=== PATIENT | female | born 1980 | race Caucasian/White ===

== ENCOUNTER 2019-01-15 01:52 | Inpatient (IN) | payer BC ==
--- OUTSIDE RECORDS SUMMARY | 2019-01-15 01:54 | XMS REPORT ---
:1980 Author Organization eClinicalWorks Care Team Providers Name Role Phone Georgie Hargrove Provider Role Unavailable Allergies, Adverse Reactions, Alerts Substance Reaction Event Type N.K.D.A. Info Not Available Non Drug Allergy Problems Problem Type Condition Code Onset Dates Condition Status Problem Multigravida of advanced maternal O09.522 Active age in second trimester Problem Well woman exam with routine Z01.419 Active gynecological exam Problem Pharyngitis, unspecified etiology J02.9 Active Assessment Pharyngitis, unspecified etiology J02.9 Active Problem Obesity (BMI 30-39.9) E66.9 Active Medications Medication Code Code Instructions Start End Status Dosage System Date Date Docusate [facility] [address]-25 Active not Sodium defined [facility] 23485035170 27-1 MG Orally Active 1 tablet Once a day Results No Known Results Summary Purpose eClinicalWorks Submission
--- OUTSIDE RECORDS SUMMARY | 2019-01-15 01:54 | XMS REPORT ---
:1980 Author Organization eClinicalWorks Care Team Providers Name Role Phone Ramos Go Provider Role Unavailable Allergies No Known Allergies Problems Problem Type Condition Code Onset Dates Condition Status Problem Multigravida of advanced maternal O09.522 Active age in second trimester Problem Well woman exam with routine Z01.419 Active gynecological exam Problem Pharyngitis, unspecified etiology J02.9 Active Assessment Multigravida of advanced maternal O09.522 Active age in second trimester Problem Obesity (BMI 30-39.9) E66.9 Active Medications Medication Code Code Instructions Start End Status Dosage System Date Date [facility] 46803565514 27-1 MG Orally Active 1 tablet Once a day Docusate [facility] [address]-36 Active not Sodium defined Results No Known Results Summary Purpose eClinicalWorks Submission
--- OUTSIDE RECORDS SUMMARY | 2019-01-15 01:54 | XMS REPORT ---
:1980 Author Organization eClinicalWorks Care Team Providers Name Role Phone Alfred Goswinder Provider Role Unavailable Allergies, Adverse Reactions, Alerts Substance Reaction Event Type N.K.D.A. Info Not Available Non Drug Allergy Problems Problem Type Condition Code Onset Dates Condition Status Assessment Encounter to determine O36.80X0 Active viability of , single or unspecified fetus Assessment Supervision of high risk O09.91 Active in first trimester Problem Multigravida of advanced maternal O09.522 Active age in second trimester Problem Well woman exam with routine Z01.419 Active gynecological exam Problem Pharyngitis, unspecified etiology J02.9 Active Assessment Amenorrhea N91.2 Active Assessment Encounter for supervision of Z34.91 Active low-risk in first trimester Problem Obesity (BMI 30-39.9) E66.9 Active Medications Medication Code System Code Instructions Start End Date Status Dosage Date Docosavit NDC 0 Active not defined NDC 32528484702 27-1 MG Orally Active 1 tablet Once a day Results Name Result Date Reference Range Unit Abnormality Flag T4 Free ----T4 Free 0.89 [id number] 0.76-1.46 TSH Thyroid Stimulating Hormone ----Thyroid 1.670 [id number] 0.360-3.740 [iU]/L Stimulating Hormone SURESWAB(R), VAGINOSIS/VAGINITI S PLUS ----C. ALBICANS, NOT DETECTED [id number] DNA ----SURESWAB(R) NOT DETECTED [id number] TRICHOMONAS VAGINALIS RNA, QL, TMA ----GARDNERELLA <4.7 [id number] Log VAGINALIS (cells/mL) ----MEGASPHAERA NOT DETECTED [id number] Log SPECIES (cells/mL) ----ATOPOBIUM NOT DETECTED [id number] Log VAGINAE (cells/mL) ----C. TROPICALIS, NOT DETECTED [id number] DNA ----CHLAMYDIA NOT DETECTED [id number] TRACHOMATIS RNA, TMA, UROGENITAL ----C. GLABRATA, NOT DETECTED [id number] DNA ----NEISSERIA NOT DETECTED [id number] GONORRHOEAE RNA, TMA, UROGENITAL ----BV CATEGORY: NOT SUPPORTIVE [id number] ----C. NOT DETECTED [id number] PARAPSILOSIS, DNA ----LACTOBACILLUS 6.7 [id number] Log SPECIES (cells/mL) Hemoglobin A1C ----Hemoglobin A1c 5.4 [id number] 4.2-6.3 % CULTURE, URINE, ROUTINE ----CULTURE, SEE NOTE [id number] URINE, ROUTINE ----CULTURE, SEE NOTE [id number] URINE, ROUTINE ----CULTURE, SEE NOTE [id number] URINE, ROUTINE URINALYSIS AUTO W/O SCOPE (54057) ----KETONES neg [id number] ----BILIRUBIN neg [id number] ----BLO TRACE [id number] ----SPECIFIC 1.030 [id number] GRAVITY ----PROTEIN neg [id number] ----pH 5.5 [id number] ----NIT neg [id number] ----URO 0.2 [id number] ----SUZY neg [id number] ----GLUCOSE neg [id number] Summary Purpose eClinicalWorks Submission
--- OUTSIDE RECORDS SUMMARY | 2019-01-15 01:54 | XMS REPORT ---
[...] Instructions Start End Date Status Dosage Date NDC 66730557447 27-1 MG Orally Active 1 tablet Once a day Docosavit NDC 0 Active not defined Results No Known Results Summary Purpose eClinicalWorks Submission
--- OUTSIDE RECORDS SUMMARY | 2019-01-15 01:55 | XMS REPORT ---
:1980 Author Organization eClinicalWorks Care Team Providers Name Role Phone Ramos Go Provider Role Unavailable Allergies No Known Allergies Problems Problem Type Condition Code Onset Dates Condition Status Problem Pharyngitis, unspecified etiology J02.9 Active Problem Multigravida of advanced maternal O09.522 Active age in second trimester Problem Supervision of high risk O09.92 Active in second trimester Assessment Supervision of high risk O09.92 Active in second trimester Problem Well woman exam with routine Z01.419 Active gynecological exam Problem Obesity (BMI 30-39.9) E66.9 Active Medications Medication Code Code Instructions Start End Status Dosage System Date Date [facility] 21246412515 27-1 MG Orally Active 1 tablet Once a day Docusate [facility] [address]-21 Active not Sodium defined Results No Known Results Summary Purpose eClinicalWorks Submission
--- OUTSIDE RECORDS SUMMARY | 2019-01-15 01:55 | XMS REPORT ---
:1980 Author Organization eClinicalWorks Care Team Providers Name Role Phone Donavan Ramos Provider Role Unavailable Allergies No Known Allergies Problems Problem Type Condition Code Onset Dates Condition Status Assessment Supervision of elderly O09.523 Active multigravida in third trimester Problem Obesity (BMI 30-39.9) E66.9 Active Assessment Supervision of high risk O09.93 Active in third trimester Assessment Polyhydramnios affecting O40.3XX0 Active in third trimester Problem Supervision of high risk O09.93 Active in third trimester Problem Polyhydramnios affecting O40.3XX0 Active in third trimester Problem Supervision of elderly O09.523 Active multigravida in third trimester Problem Multigravida of advanced maternal O09.522 Active age in second trimester Problem Well woman exam with routine Z01.419 Active gynecological exam Problem Supervision of high risk O09.92 Active in second trimester Problem Pharyngitis, unspecified etiology J02.9 Active Medications Medication Code Code Instructions Start End Status Dosage System Date Date [facility] 73673214441 27-1 MG Orally Active 1 tablet Once a day Docusate [facility] [address]-05 Active not Sodium defined Results No Known Results Summary Purpose eClinicalWorks Submission
--- OUTSIDE RECORDS SUMMARY | 2019-01-15 01:55 | XMS REPORT ---
:1980 Author Organization eClinicalWorks Care Team Providers Name Role Phone Ramos Go Provider Role Unavailable Allergies No Known Allergies Problems Problem Type Condition Code Onset Dates Condition Status Problem Well woman exam with routine Z01.419 Active gynecological exam Problem Obesity (BMI 30-39.9) E66.9 Active Assessment Supervision of high risk O09.93 Active in third trimester Assessment Polyhydramnios affecting O40.3XX0 Active in third trimester Assessment Supervision of elderly O09.523 Active multigravida in third trimester Problem Supervision of elderly O09.523 Active multigravida in third trimester Problem Supervision of high risk O09.93 Active in third trimester Problem Need for Tdap vaccination Z23 Active Problem Pharyngitis, unspecified etiology J02.9 Active Problem Multigravida of advanced maternal O09.522 Active age in second trimester Problem Polyhydramnios affecting O40.3XX0 Active in third trimester Problem Supervision of high risk O09.92 Active in second trimester Medications Medication Code Code Instructions Start End Status Dosage System Date Date Docusate [facility] [address]-61 Active not Sodium defined [facility] 79110362956 27-1 MG Orally Active 1 tablet Once a day Results No Known Results Summary [facility]
--- OUTSIDE RECORDS SUMMARY | 2019-01-15 01:55 | XMS REPORT ---
:1980 Author Organization eClinicalWorks Care Team Providers Name Role Phone JaynenevinjtRamos Provider Role Unavailable Allergies No Known Allergies [...] End Status Dosage System Date Date Docusate [facility] [address]-86 Active not Sodium defined [facility] 45695902921 27-1 MG Orally Active 1 tablet Once a day Results No Known Results Summary Purpose eClinicalWorks Submission
--- OUTSIDE RECORDS SUMMARY | 2019-01-15 01:55 | XMS REPORT ---
:1980 Author Organization eClinicalWorks Care Team Providers Name Role Phone Ramos Go Provider Role Unavailable Allergies No Known Allergies Problems Problem Type Condition Code Onset Dates Condition Status Problem Obesity (BMI 30-39.9) E66.9 Active Problem Supervision of high risk O09.93 Active [...] Problem Pharyngitis, unspecified etiology J02.9 Active Medications No Known Medications Results No Known Results Summary Purpose eClinicalWorks Submission
--- OUTSIDE RECORDS SUMMARY | 2019-01-15 01:55 | XMS REPORT ---
:1980 Author Organization eClinicalWorks Care Team Providers Name Role Phone Ramos Go Provider Role Unavailable Allergies No Known Allergies Problems Problem Type Condition Code Onset Dates Condition Status Problem Well woman exam with routine Z01.419 Active gynecological exam Problem Obesity (BMI 30-39.9) E66.9 Active Assessment Supervision of high risk O09.93 Active in third trimester Problem Supervision of [...] End Status Dosage System Date Date Docusate [facility] [address]-14 Active not Sodium defined [facility] 42617313872 27-1 MG Orally Active 1 tablet Once a day Results No Known Results Summary Purpose eClinicalWorks Submission
--- OUTSIDE RECORDS SUMMARY | 2019-01-15 01:55 | XMS REPORT ---
:1980 Author Organization eClinicalWorks Care Team Providers Name Role Phone JaynenevinjtRamos Provider Role Unavailable Allergies No Known Allergies Problems Problem Type Condition Code Onset Dates Condition Status Problem Well woman exam with routine Z01.419 Active gynecological exam Problem Obesity (BMI 30-39.9) E66.9 Active Assessment Need for Tdap vaccination Z23 Active Assessment Supervision of high risk O09.93 [...] Start End Status Dosage System Date Date [facility] 58199228516 27-1 MG Orally Active 1 tablet Once a day Docusate [facility] [address]-67 Active not Sodium defined Results No Known Results Immunizations Vaccine Administration Date TDAP > 7 Years-Adacel November 24, 2018 Summary Purpose eClinicalWorks Submission
--- OUTSIDE RECORDS SUMMARY | 2019-01-15 01:55 | XMS REPORT ---
[...] Start End Status Dosage System Date Date [facility] 86793327883 27-1 MG Orally Active 1 tablet Once a day Docusate [facility] [address]-94 Active not Sodium defined Results No Known Results Summary Purpose [facility]
[2019-01-15] MEDS ORDERED: METHYLERGONOVINE 0.2MG/ML AMP IM PRN (02:34)
[2019-01-15] MEDS ORDERED: Ringers Lactate 1,000 ML IV PRN (02:34)
[2019-01-15 02:49] VITALS: BMI 35.1
[2019-01-15] MEDS ORDERED: Ringers Lactate 1,000 ML IV SCH (03:00)
[2019-01-15] MEDS ORDERED: LIDOCAINE 1% MPF 30 ML VIAL ONE (03:24)
[2019-01-15] MEDS ORDERED: OXYTOCIN 10 UNIT/ML ML IV ONE (03:24)
[2019-01-15] MEDS ORDERED: ONDANSETRON 4 MG (ODT) TAB PO PRN (03:36)
[2019-01-15] MEDS ORDERED: BISACODYL 10 MG RECTAL SUPP RECT PRN (03:36)
[2019-01-15] MEDS ORDERED: METHYLERGONOVINE 0.2 MG TAB PO PRN (03:36)
[2019-01-15] MEDS ORDERED: DOCUSATE NA/SENNA CONC 1 TAB PO PRN (03:36)
[2019-01-15] MEDS ORDERED: ACETAMINOPHEN 500 MG TAB PO PRN (03:36)
[2019-01-15] MEDS ORDERED: KETOROLAC 30 MG/ML INJ ONE (03:39)
[2019-01-15] MEDS ORDERED: KETOROLAC 30 MG/ML INJ IM PRN (03:39)
--- NOTE | 2019-01-15 03:41 | P.OBGYNHP ---
Certification for Inpatient Patient admitted to: Inpatient With expected LOS: <2 Midnights Patient will require the following post-hospital care: None Practitioner: I am a practitioner with admitting privileges, knowledge of patient current condition, hospital course, and medical plan of care. Services: Services provided to patient in accordance with Admission requirements found in Title 42 Section 412.3 of the Code of Federal Regulations Patient History Date of Service: 01/15/19 Reason for admission: LABOR Allergies No Known Allergies Allergy (Unverified 10/21/16 17:21) Home Medications: Pnv #116/Iron Fumarate/FA/Dha [Expecta Combo Pack] 1 each PO DAILY Docusate Sodium [Colace] 1 tab PO DAILY 01/15/19 - Past Medical/Surgical History Has patient received pneumonia vaccine in the past: No Diabetic: No - Family History Father -: Heart disease, Hypertension, Diabetes Mother -: Heart disease, Hypertension - Social History Smoking Status: Never smoker Alcohol use: No CD- Drugs: No Caffeine use: Yes Place of Residence: Home Physical Examination - Vital Signs Temperature: 98.3 F Blood Pressure: 117/79 Pulse: 76 Respirations: 18 Assessment and Plan - Advance Directives Does patient have a Living Will: No Does patient have a Durable POA for Healthcare: No
--- NOTE | 2019-01-15 03:42 | P.OP ---
Date of Service: 01/15/19 Findings and Operative Technique Patient delivered a viable female in cephalic presentation on 01/15/19 at ____. was delivered over a midline episiotomy
[2019-01-15] MEDS ORDERED: OXYTOCIN/LR 20 UNIT/1,000 ML BAG IV ONE (04:21)
[2019-01-15 04:41] LABS: RPR Titer ND
[2019-01-15 04:47] LABS: Urine Appearance CLEAR; Urine Bilirubin NEGATIVE (NEG); Urine Blood 2+ (NEG); Urine Color YELLOW; Urine Glucose NEGATIVE (NEG); Urine Protein TRACE (NEG); Urine Urobilinogen 0.2 mg/dL (0.2-1.0); Urine pH 5.5 (5.0-7.0)
[2019-01-15 04:49] LABS: Absolute Lymphocytes (CBC) 2.9 K/uL (0.7-4.9); Absolute Monocytes 1.6 K/uL (0.1-1.3); Absolute Neutrophil 19.7 K/uL (1.8-8.0); Basophils % 0.3 % (0-1.3); Eosinophils % 0.1 % (0-4.4); Hematocrit 39.3 % (36.0-45.0); Lymphocytes % 11.9 % (15.3-44.8); MPV 9.8 fL (7.6-11.3); Monocytes % 6.4 % (3.3-12.3); RBC Red Blood Cell Count 4.47 M/uL (3.86-4.86)
[2019-01-15 04:50] LABS: Urine Microscopic Reflex ORDER UMIC
[2019-01-15] MEDS ORDERED: METHYLERGONOVINE 0.2 MG TAB PO ONE (05:05)
[2019-01-15 05:13] LABS: Blood Morphology Comment NOT SEEN (NOT SEEN); Platelet Estimate ADEQ
[2019-01-15 05:15] LABS: Calcium Oxalate Crystals- Ur FEW (NONE SEEN); Urine Bacteria <20 /HPF (<20); Urine Culture Reflex Order NOT NEEDED
[2019-01-15] MEDS: Oxycodone HCl/Acetaminophen 1 TAB TAB PO PRN ×2 (07:48→18:18)
[2019-01-15 13:24] LABS: Absolute Lymphocytes (CBC) 5.1 K/uL (0.7-4.9); Absolute Neutrophil 15.6 K/uL (1.8-8.0); Basophils % 0.5 % (0-1.3); Eosinophils % 0.2 % (0-4.4); Hematocrit 37.2 % (36.0-45.0); Lymphocytes % 22.2 % (15.3-44.8); Monocytes % 8.8 % (3.3-12.3); RBC Red Blood Cell Count 4.23 M/uL (3.86-4.86)
[2019-01-15] MEDS: IBUPROFEN 200 MG TAB PO PRN ×2 (14:13→23:55)
[2019-01-15 20:56] LABS: RPR (Rapid Plasma Reagin) NON-REACT (NON-REACT)
[2019-01-16] MEDS: IBUPROFEN 200 MG TAB PO PRN (07:29)
[2019-01-16 07:43] VITALS: BP 110/71; TEMP 98.3
[2019-01-18 18:45] LABS: HBsAG Nonreactive (Nonreactive)
== END 2019-01-16 11:20 | disposition home or self-care (01) | DRG 807 ==
LOC: L&D 01:52 → 2ND-WC 02:37
PROVIDERS: ADMIT Student in an Organized Health Care Education/Training Program; ATTEND Student in an Organized Health Care Education/Training Program
PROC: 10E0XZZ Delivery of Products of Conception, External Approach (ICD-10-PCS; principal; 2019-01-15)
PROC: 0W8NXZZ Division of Female Perineum, External Approach (ICD-10-PCS; 2019-01-15)
DX: O80 Encounter for full-term uncomplicated delivery (principal); Z37.0 Single live birth; Z3A.38 38 weeks gestation of pregnancy
CPT/HCPCS: 36415; 81003; 81015; 85025; 86592; 86901; 87340; J2210; J2590

== ENCOUNTER 2022-12-12 13:10 | Emergency (ER) | payer BC ==
--- OUTSIDE RECORDS SUMMARY | 2022-12-12 13:13 | XMS REPORT | Continuity of Care Document ---
:1980 Author Organization [facility] t Address [address] [facility] [address] [place] [address] Care Team Providers Name Role Phone Unavailable Unavailable Unavailable Problems Condition Condition Condition Status Onset Resolution Last Treating Co mments Source Name Details Category Date Date Treatment Clinician Date Multigravi Multigravi Problem Active C ommon da of da of [facility] advanced advanced - [facility] maternal maternal St age in age in [facility] second second Medical trimester trimester Cent er Well woman Well woman Problem Active C ommon exam with exam with Spir it routine routine - [facility] gynecologi gynecologi [facility] exam zita exam [facility] Pharyngiti Pharyngiti Problem Active C ommon s, s, Spirit unspecifie unspecifie - [facility] d etiology d etiology [facility] Obesity Obesity Problem Active Common (BMI (BMI Spirit 30-39.9) 30-39.9) - [facility] Supervisio Supervisio Problem Active C ommon n of high n of high Spir it risk risk - [facility] second in second [facility] trimester trimester [facility] Supervisio Supervisio Problem Active C ommon n of n of [facility] elderly elderly - [facility] multigravi multigravi St da in da in [facility] third third Medical trimester trimester Cent er Supervisio Supervisio Problem Active C ommon n of high n of high Spir it risk risk - [facility] third [facility] trimester trimester [facility] Polyhydram Polyhydram Problem Active C ommon nios nios Spirit affecting affecting - [facility] I [facility] third [facility] trimester trimester [facility] Need for Need for Problem Active Commo n Tdap Tdap [facility] vaccinatio vaccinatio - [facility] n n [facility] Problem Active C ommon endometrit endometrit Sp brandon is is - [facility] Follow up Follow up Problem Active Com mon [facility] - [facility] Encounter Encounter Diagnosis Active C ommon for for [facility] routine routine - [facility] St follow-up follow-up [facility] Allergies, Adverse Reactions, Alerts This patient has no known allergies or adverse reactions. Social History Social Habit Start Date Stop Date Quantity Comments Source Sex Assigned At [birth year] [facility]00 [facility] Medications Ordered Filled Start Stop Current Ordering Indication Dosage Frequency Signature Comments Components Source Medication Medication Date Date Medication? Clinician (SIG) Name Name Yes Ramos 1 tablet Common [facility] Docusate Docusate Yes Ramos not Co mmon Sodium Sodium Rekhi defined [facility] Immunizations Ordered Immunization Filled Immunization Date Status Commen ts Source Name Name TDAP > 7 TDAP > 7 2018-11-24 Completed Common [facility] Years-Adacel Years-Adacel 00:00:00 - [facility] Procedures This patient has no known procedures. Encounters Start End Encounter Admission Attending Care Care Encounter Source Date/Time Date/Time Type Type Clinicians Facility Department ID 2019-02-24 2019-02-24 [id number] [facility] 11:00:00 11:00:00 [facility] 2019-02-01 2019-02-01 [id number] Common 11:15:00 11:15:00 [facility] 2018-12-23 2018-12-23 [id number] Common 16:00:00 16:00:00 [facility] 2018-12-15 2018-12-15 [id number] Common 16:00:00 16:00:00 [facility] 2018-12-08 2018-12-08 [id number] Common 15:45:00 15:45:00 [facility] 2018-11-24 2018-11-24 [id number] Common 15:45:00 15:45:00 [facility] 2018-11-11 2018-11-11 [id number] Common 16:00:00 16:00:00 [facility] 2018-10-27 2018-10-27 [id number] Common 16:48:00 16:48:00 [facility] 2018-10-27 2018-10-27 [id number] Common 10:30:00 10:30:00 [facility] 2018-09-29 2018-09-29 [id number] Common 10:00:00 10:00:00 t [facility] 2018-08-26 2018-08-26 [id number] Common 10:15:00 10:15:00 [facility] 2018-08-04 2018-08-04 [id number] Common 19:00:00 19:00:00 t Urgent Urgent Care p[facility] Care [facility] 2018-07-28 2018-07-28 [id number] Common 10:30:00 10:30:00 [facility] 2018-06-29 2018-06-29 [id number] Common 10:30:00 10:30:00 t [facility] Results Test Description Test Time Test Comments Results Result Comments Source SARS-COV2/RT-PCR ([facility]) 2019-12-14 18:20:00 Test Item Value Reference Range Interpretation Comme nts SARS-COV2/RT-PCR (test code = [id number]) Not Detected Not Detected, N egative SARS-COV-2 PERFORMING LAB (test code = [facility] [id number]) Negative results do not preclude SARS-CoV-2 infection and should not be used as the sole basis for patient management decisions. Negative results must be combined with clinical observations, patient history, and epidemiological information. A false negative result may occur if a specimen is improperly collected, transported or handled.The limit of detection for this assay is 250 copies/mL.This SARS CoV-2 test is a rapid, real-time RT-PCR test intended for the qualitative detection of nucleic acid from SARS-CoV-2 in a nasopharyngeal swab specimen collected from individuals suspected of COVID-19 by their healthcare provider.This test has not been Food and Drug Administration (FDA) cleared or approved and has been authorized by FDA under an Emergency Use Authorization (EUA). This EUA will be effective until the declaration that circumstances exist justifying the authorization of the emergency use of in vitro diagnostic tests for detection and/or diagnosis of COVID-19 is terminated under Section 564(b)(2) of the Act or the EUA is revoked under Section 564(g) of the Act.Fact Sheet for Healthcare Pro viders:https://www.[employer] Search [employer]/Documents/Xpert%20Xpress%20SARS%20CoV-2/Fact%20Sh eets/302-3802%17SHAD-ANY-5%20HEALTHCARE%20PROVIDERS%20FACT%20SHEET.pdfFact Sheet for Healthcare Patients:https://www.[employer] Search [employer]/Documents/Xpert%20Xpress%20SARS%20CoV-2/Fact%20Sheets/302-3801%20SARS-COV -2%20PATIENT%20FACT%20SHEET.pdfPerforming Laboratory:[facility] [place] [address]
[2022-12-12] MEDS ORDERED: NA CHLORIDE 0.9% 1,000 ML ONE (13:55)
[2022-12-12] MEDS ORDERED: FAMOTIDINE 20 MG/2 ML VIAL IV ONE (13:56)
[2022-12-12 14:09] LABS: Absolute Lymphocytes (CBC) 4.3 K/uL (0.7-4.9); Hematocrit 42.8 % (36.0-45.0); Lymphocytes % 48.1 % (15.3-44.8); MCV 87.7 fL (80-100); MPV 8.3 fL (7.6-11.3); RBC Red Blood Cell Count 4.88 M/uL (3.86-4.86)
[2022-12-12 14:18] LABS: Specific Gravity 1.012 (1.005-1.030)
[2022-12-12 14:21] LABS: Albumin 3.9 g/dL (3.4-5.0); Bilirubin Total 0.7 mg/dL (0.2-1.0); Potassium 3.8 mEq/L (3.5-5.1); Protein, Total 7.1 g/dL (6.4-8.2)
[2022-12-12 14:22] LABS: Specific Gravity 1.012 (1.005-1.030); Urine Bacteria <20 /HPF (<20); Urine Bilirubin NEGATIVE (Negative); Urine Blood 3+ (OVER) (Negative); Urine Clarity Clear (Clear); Urine Color Light-Yellow (Yellow); Urine Glucose NEGATIVE (Negative); Urine Mucus Slight /HPF (None Seen); Urine Protein 1+ (Negative); Urine Urobilinogen Normal (Normal); Urine pH 5.5 (5.0-7.0)
--- NOTE | 2022-12-12 14:25 | RAD REPORT ---
EXAM DESCRIPTION: CTAbdomen Pelvis W Contrast - 12/12/2022 2:07 pm CLINICAL HISTORY: ABD PAIN COMPARISON: No comparisons TECHNIQUE: CT of the abdomen and pelvis was performed. All CT scans are performed using dose optimization technique as appropriate and may include automated exposure control or mA/KV adjustment according to patient size. FINDINGS: Lower chest: No acute abnormality. Liver: No acute abnormality or suspicious lesions. Biliary: No biliary ductal dilatation. Stomach: No significant focal abnormality. Duodenum: No significant focal abnormality. Pancreas: No significant abnormality. Spleen: No significant abnormality. Adrenal: No suspicious lesions. Kidney/ureter: No hydronephrosis. 11 mm stone in the right renal pelvis. Subcentimeter right upper po le renal cyst. Retroperitoneum: No retroperitoneal adenopathy. Vascular: No aneurysm. Bowel: No significant focal abnormality. Normal appendix Peritoneum: No ascites or free air. Bladder: Circumferential bladder wall thickening which may be related to underdistention. Reproductive: Corpus luteal cyst in the right adnexa could be a source of pain. Bones: No acute fracture. Other: n/a IMPRESSION: No acute intra-abdominal or pelvic finding. Nonobstructing 11 mm stone in the right charlee l pelvis. Normal appendix.
[2022-12-12] MEDS ORDERED: CEFTRIAXONE 1000 MG/VIAL ONE (15:15)
[2022-12-12] MEDS ORDERED: KETOROLAC 30 MG/ML INJ ONE (15:15)
[2022-12-12] MEDS ORDERED: NA CHLORIDE 0.9% 100 ML ONE (15:16)
--- NOTE | 2022-12-12 15:36 | EDPHYS ---
Physician Documentation [facility] Name: Zainab Hassan Age: 42 yrs Sex: Female : 1980 Arrival Date: 12/12/2022 Time: 13:10 Bed 5 Private MD: ED Physician Madhav Caceres HPI: 12/12 13:33 This 42 yrs old Female presents to ER via Ambulatory with complaints of Abdominal Pain. snw 13:33 Onset: The symptoms/episode began/occurred gradually, 7 day(s) ago, and became snw persistent. The symptoms do not radiate. Associated signs and symptoms: Pertinent positives: nausea. The symptoms are described as achy. Severity of pain: At its worst the pain was moderate. The patient has not experienced similar symptoms in the past, but family has similar symptoms, mother. The patient has been recently seen by a physician:. 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 - Social history:: Smoking status: Patient denies any tobacco usage or history of. ROS: 13:32 Constitutional: Negative for fever, chills, and weight loss, Eyes: Negative for injury, snw pain, redness, and discharge, ENT: Negative for injury, pain, and discharge, Neck: Negative for injury, pain, and swelling, Cardiovascular: Negative for chest pain, palpitations, and edema, Respiratory: Negative for shortness of breath, cough, wheezing, and pleuritic chest pain, Back: Negative for injury and pain, : Negative for injury, bleeding, discharge, and swelling, MS/Extremity: Negative for injury and deformity, Skin: Negative for injury, rash, and discoloration, Neuro: Negative for headache, weakness, numbness, tingling, and seizure, Psych: Negative for depression, anxiety, suicide ideation, homicidal ideation, and hallucinations. 13:32 Abdomen/GI: Positive for abdominal pain, nausea, of the right lower quadrant. Exam: 13:32 Constitutional: This is a well developed, well nourished patient who is awake, alert, snw and in no acute distress. Head/Face: Normocephalic, atraumatic. Eyes: Pupils equal round and reactive to light, extra-ocular motions intact. Lids and lashes normal. Conjunctiva and sclera are non-icteric and not injected. Cornea within normal limits. Periorbital areas with no swelling, redness, or edema. ENT: Nares patent. No nasal discharge, no septal abnormalities noted. Tympanic membranes are normal and external auditory canals are clear. Oropharynx with no redness, swelling, or masses, exudates, or evidence of obstruction, uvula midline. Mucous membranes moist. Neck: Trachea midline, no thyromegaly or masses palpated, and no cervical lymphadenopathy. Supple, full range of motion without nuchal rigidity, or vertebral point tenderness. No Meningismus. Chest/axilla: Normal chest wall appearance and motion. Nontender with no deformity. No lesions are appreciated. Cardiovascular: Regular rate and rhythm with a normal S1 and S2. No gallops, murmurs, or rubs. Normal PMI, no JVD. No pulse deficits. Respiratory: Lungs have equal breath sounds bilaterally, clear to auscultation and percussion. No rales, rhonchi or wheezes noted. No increased work of breathing, no retractions or nasal flaring. Back: No spinal tenderness. No costovertebral tenderness. Full range of motion. Skin: Warm, dry with normal turgor. Normal color with no rashes, no lesions, and no evidence of cellulitis. MS/ Extremity: Pulses equal, no cyanosis. Neurovascular intact. Full, normal range of motion. Neuro: Awake and alert, GCS 15, oriented to person, place, time, and situation. Cranial nerves II-XII grossly intact. Motor strength 5/5 in all extremities. Sensory grossly intact. Cerebellar exam normal. Normal gait. Psych: Awake, alert, with orientation to person, place and time. Behavior, mood, and affect are within normal limits. 13:32 Abdomen/GI: Inspection: abdomen appears normal, Bowel sounds: normal, Palpation: mild abdominal tenderness, in the right lower quadrant, moderate abdominal tenderness. Vital Signs: 13:28 BP 117 / 84; Pulse 88; Resp 16; Temp 98.3(O); Pulse Ox 100% on R/A; Weight 52.16 kg; vg1 Height 5 ft. 0 in. ; Pain 6/10; 15:26 BP 121 / 86; Pulse 87; Resp 16; Pulse Ox 100% on R/A; hb 13:28 Body Mass Index 22.46 (52.16 kg, 152.4 cm) vg1 13:28 Pain Scale: Adult vg1 MDM: 13:19 Patient medically screened. snw 15:36 Differential diagnosis: appendicitis, bowel obstruction, cholecystitis, Cholelithiasis, snw diverticulitis, gastritis, gastroesophageal reflux disease, urinary tract infection, ovarian cyst/torsion. Data reviewed: vital signs, nurses notes, lab test result(s), radiologic studies, CT scan. I considered the following discharge prescriptions or medication management in the emergency department Medications were administered in the Emergency Department. See MAR. Counseling: I had a detailed discussion with the patient and/or guardian regarding: the historical points, exam findings, and any diagnostic results supporting the discharge/admit diagnosis, the presence of at least one elevated blood pressure reading (>120/80) during this emergency department visit, lab results, radiology results, the need for outpatient follow up, for definitive care, to return to the emergency department if symptoms worsen or persist or if there are any questions or concerns that arise at home. Special discussion: Based on the patient's Hx, exam, and Dx evaluation, there is no indication for emergent surgery or inpatient Tx. It is understood by the patient/guardian that if the Sx's persist or worsen they need to return immediately for re-evaluation. I have referred the patient to see his PCP for further evaluation of high blood pressure. Based on the history and exam findings, there is no indication for further emergent testing or inpatient evaluation. I discussed with the patient/guardian the need to see the primary care provider for further evaluation of the symptoms. 12/12 13:30 Order name: CBC with Diff; Complete Time: 14:27 snw 12/12 13:30 Order name: CMP; Complete Time: 14:27 snw 12/12 13:30 Order name: Lipase; Complete Time: 14:27 w 12/12 13:30 Order name: Test, Urine; Complete Time: 14:27 snw 12/12 13:30 Order name: Urinalysis w/ reflexes; Complete Time: 14:27 snw 12/12 13:30 Order name: CT Abd/Pelvis - IV Contrast Only; Complete Time: 14:27 snw 12/12 13:30 Order name: IV Saline Lock; Complete Time: 14:04 snw 12/12 13:30 Order name: Labs collected and sent; Complete Time: 14:04 snw Administered Medications: 14:15 Drug: NS 0.9% IV 1000 ml Route: IV; Rate: 1 bolus; Site: left antecubital; bp 15:15 Follow up: IV Status: Completed infusion iw 14:15 Drug: Famotidine IVP 20 mg Route: IVP; Site: left antecubital; bp 16:39 Follow up: Response: No adverse reaction iw 15:20 Drug: Rocephin IV 1 grams Route: IV; Rate: calculated rate; Site: right antecubital; hb 15:40 Follow up: IV Status: Completed infusion iw 15:20 Drug: Ketorolac IVP 15 mg Route: IVP; Site: right antecubital; hb 15:50 Follow up: Response: No adverse reaction; Pain is decreased iw Disposition Summary: 12/12/22 15:35 Discharge Ordered Location: Home snw Condition: Stable snw Diagnosis - Lower abdominal pain, unspecified snw - UTI/ Urinary tract infection, site not specified snw Followup: snw - With: Emergency Department - When: As needed - Reason: Worsening of condition Followup: snw - With: Private Physician - When: 2 - 3 days - Reason: Recheck today's complaints, Continuance of care, Re-evaluation by your physician Discharge Instructions: - Discharge Summary Sheet snw - Abdominal Pain, Adult snw - Urinary Tract Infection, Adult snw - Gas and Gas Pains, Pediatric snw - Rehydration, Adult snw - [place] Diet snw Forms: - Work release form snw - Medication Reconciliation Form snw - Thank You Letter snw - Antibiotic Education snw - Prescription Opioid Use snw Prescriptions: - Augmentin 875-125 mg Oral Tablet - take 1 tablet by ORAL route every 12 hours for 10 days; 20 tablet; Refills: 0, snw Product Selection Permitted - Mobic 7.5 mg Oral Tablet - take 1 tablet by ORAL route once daily take with food; 20 tablet; Refills: 0, snw Product Selection Permitted - promethazine 25 mg Oral Tablet - take 1 tablet by ORAL route every 6 hours As needed; 20 tablet; Refills: 0, snw Product Selection Permitted Signatures: Dispatcher [employer] EDMS Jesusita Soler, WATER VALVE REPAIRER-C WATER VALVE REPAIRER-Csnw Nora Paige, RN RN Rui Jernigan, RN RN Miriam Andino RN RN vg1 Liliana Rodriguez RN iw
--- NOTE | 2022-12-12 15:36 | ER ---
Nurse's Notes [facility] Name: Zainab Hassan Age: 42 yrs Sex: Female : 1980 Arrival Date: 12/12/2022 Time: 13:10 Bed 5 Private MD: Diagnosis: Lower abdominal pain, unspecified;UTI/ Urinary tract infection, site not specified Presentation: 12/12 13:28 Chief complaint: Patient states: RLQ x1 week with nausea. Coronavirus screen: Vaccine vg1 status: Patient reports receiving the 2nd dose of the covid vaccine. Client denies travel out of the [place] in the last 14 days. Ebola Screen: Patient negative for fever greater than or equal to 101.5 degrees Fahrenheit, and additional compatible Ebola Virus Disease symptoms Patient denies exposure to infectious person. Patient denies travel to an Ebola-affected area in the 21 days before illness onset. Initial Sepsis Screen: Does the patient meet any 2 criteria? No. Patient's initial sepsis screen is negative. Does the patient have a suspected source of infection? No. Patient's initial sepsis screen is negative. Risk Assessment: Do you want to hurt yourself or someone else? Patient reports no desire to harm self or others. Onset of symptoms was December 05, 2022. 13:28 Method Of Arrival: Ambulatory vg1 13:28 Acuity: LYSSA 3 vg1 Triage Assessment: 13:30 General: Appears in no apparent distress. uncomfortable, Behavior is calm, cooperative. vg1 Pain: Complains of pain in right lower quadrant Pain currently is 6 out of 10 on a pain scale. GI: Reports nausea. 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 - Social history:: Smoking status: Patient denies any tobacco usage or history of. Screenin:04 [facility] ED Fall Risk Assessment (Adult) Score/Fall Risk Level 0 - 2 = Low Risk hb Oriented to surroundings, Maintained a safe environment, Educated pt \T\ family on fall prevention, incl call for assistance when getting out of bed. Abuse screen: Denies threats or abuse. Denies injuries from another. Nutritional screening: No deficits noted. Tuberculosis screening: No symptoms or risk factors identified. Assessment: 14:05 General: Appears in no apparent distress. Behavior is calm, cooperative. Pain: Pain hb currently is 6 out of 10 on a pain scale. Neuro: Level of Consciousness is awake, alert, obeys commands, Oriented to person, place, time, situation. Cardiovascular: Patient's skin is warm and dry. Respiratory: Respiratory effort is even, unlabored, Respiratory pattern is regular, symmetrical. GI: Reports RLQ pain. : No signs and/or symptoms were reported regarding the genitourinary system. EENT: No signs and/or symptoms were reported regarding the EENT system. Derm: Skin is pink, warm \T\ dry. Musculoskeletal: No signs and/or symptoms reported regarding the musculoskeletal system. 15:26 Reassessment: Patient appears in no apparent distress at this time. Patient and/or hb family updated on plan of care and expected duration. Pain level reassessed. Patient is alert, oriented x 3, equal unlabored respirations, skin warm/dry/pink. 16:38 GI: iw Vital Signs: 13:28 BP 117 / 84; Pulse 88; Resp 16; Temp 98.3(O); Pulse Ox 100% on R/A; Weight 52.16 kg; vg1 Height 5 ft. 0 in. ; Pain 6/10; 15:26 BP 121 / 86; Pulse 87; Resp 16; Pulse Ox 100% on R/A; hb 13:28 Body Mass Index 22.46 (52.16 kg, 152.4 cm) vg1 13:28 Pain Scale: Adult vg1 ED Course: 13:11 Patient arrived in ED. ts1 13:16 Jesusita Soler FNP-C [facility] snw 13:16 Madhav Caceres MD is Attending Physician. snw 13:30 Triage completed. vg1 13:30 Arm band placed on. vg1 13:33 Rui Mcmanus, CRISTHIAN is Primary Nurse. bp 13:56 Inserted saline lock: 22 gauge in right antecubital area, using aseptic technique. hb Blood collected. 14:06 Patient has correct armband on for positive identification. hb 14:08 CT Abd/Pelvis - IV Contrast Only In Process Unspecified. EDMS 16:38 No provider procedures requiring assistance completed. IV discontinued, intact, iw bleeding controlled, No redness/swelling at site. Pressure dressing applied. Administered Medications: 14:15 Drug: NS 0.9% IV 1000 ml Route: IV; Rate: 1 bolus; Site: left antecubital; bp 15:15 Follow up: IV Status: Completed infusion iw 14:15 Drug: Famotidine IVP 20 mg Route: IVP; Site: left antecubital; bp 16:39 Follow up: Response: No adverse reaction iw 15:20 Drug: Rocephin IV 1 grams Route: IV; Rate: calculated rate; Site: right antecubital; hb 15:40 Follow up: IV Status: Completed infusion iw 15:20 Drug: Ketorolac IVP 15 mg Route: IVP; Site: right antecubital; hb 15:50 Follow up: Response: No adverse reaction; Pain is decreased iw Medication: 14:06 VIS not applicable for this client. hb Outcome: 15:35 Discharge ordered by MD. snw 16:38 Discharged to home ambulatory, with family. iw 16:38 Condition: good 16:38 Discharge instructions given to patient, family, Instructed on discharge instructions, follow up and referral plans. medication usage, Demonstrated understanding of instructions, follow-up care, medications, Prescriptions given X 3. 16:38 Patient left the ED. iw Signatures: Dispatcher [employer] EDMS Jesusita Soler, PLANT MAINTENANCE SUPERVISOR-C PLANT MAINTENANCE SUPERVISOR-Csnw Liliana Rodriguez RN RN Nora Paige RN RN hb Peltier, Brian, RN RN bp Garcia, Victoria, RN RN 1 Jeri Beltran PAS PAS ts1
[2022-12-12 16:43] VITALS: TEMP 98.3; O2SAT 100
[2022-12-12 16:45] VITALS: BP 121/86
== END 2022-12-12 16:38 | disposition home or self-care (01) ==
LOC: ER 13:10
DX: N39.0 Urinary tract infection, site not specified (principal)
CPT/HCPCS: 85025; 81001; 36415; 81025; 83690; 80053; 74177; 99284; Q9967; J7030; J0696

== ENCOUNTER 2023-04-30 07:20 | Emergency (ER) | payer BC, OTHER ==
--- OUTSIDE RECORDS SUMMARY | 2023-04-30 07:12 | XMS REPORT | Continuity of Care Document ---
:1980 Author Organization [facility] t Address [address] [facility] [address] [place] [id number] Care Team Providers Name Role Phone Unavailable Unavailable Unavailable Problems Condition Condition Condition Status Onset Resolution Last Treating Co mments Source Name Details Category Date Date Treatment Clinician Date Multigravi Multigravi Problem Active C ommon da of da of Spirit advanced advanced - [facility] maternal maternal [facility] age in age in [facility] second second Medical trimester trimester Cent er Well woman Well woman Problem Active C ommon exam with exam with Spir it routine routine - [facility] gynecologi gynecologi [facility] Heart exam zita exam [facility] Pharyngiti Pharyngiti Problem Active C ommon s, s, Spirit unspecifie unspecifie - [facility] d etiology d etiology [facility] Obesity Obesity Problem Active Common (BMI (BMI Spirit 30-39.9) 30-39.9) - [facility] Supervisio Supervisio Problem Active C ommon n of high n of high Spir it risk risk - [facility] St in second in second Luke s trimester trimester [facility] Supervisio Supervisio Problem Active C ommon n of n of Spirit elderly elderly - [facility] multigravi multigravi [facility] da [facility] third third Medical trimester trimester Cent er Supervisio Supervisio Problem Active C ommon n of high n of high Spir it risk risk - [facility] third in third [facility] trimester trimester [facility] Polyhydram Polyhydram Problem Active C ommon nios nios Spirit affecting affecting - [facility] I St in third in third [facility] trimester trimester [facility] Need for Need for Problem Active Commo n Tdap Tdap Spirit vaccinatio vaccinatio - [facility] n n [facility] Problem Active C ommon endometrit endometrit Sp brandon is is - [facility]I [facility] Follow up Follow up Problem Active Com mon Spirit - [facility] Encounter Encounter Diagnosis Active C ommon [facility] follow-up follow-up [facility] Allergies, Adverse Reactions, Alerts This patient has no known allergies or adverse reactions. Social History Social Habit Start Date Stop Date Quantity Comments Source Sex Assigned At [birth year] [facility]:00:00 [facility]00 [facility] Medications Ordered Filled Start Stop Current Ordering Indication Dosage Frequency Signature Comments Components Source Medication Medication Date Date Medication? Clinician (SIG) Name Name Yes Ramos 1 tablet Common Rekhi [facility] Docusate Docusate Yes Ramos not Co mmon Sodium Sodium Rekhi defined [facility] Procedures This patient has no known procedures. Encounters Start End Encounter Admission Attending Care Care Encounter Source Date/Time Date/Time Type Type Clinicians Facility Department ID 2019-02-24 2019-02-24 [id number] Common [facility]:00[facility] 2019-02-01 2019-02-01 [id number] Common 11:15:00 11:15:00 [facility] 2018-12-23 2018-12-23 [id number] Common 16:00:00 16:00:00 [facility] 2018-12-15 2018-12-15 [facility] [id number] Common 16:00:00 16:00:00 [facility] 2018-12-08 2018-12-08 [facility] [id number] Common 15:45:00 15:45:00 [facility] 2018-11-24 2018-11-24 [id number] Common 15:45:00 15:45:00 [facility] 2018-11-11 2018-11-11 [id number] Common 16:00:00 16:00:00 [facility] 2018-10-27 2018-10-27 [id number] Common 16:48:00 16:48:00 [facility] 2018-10-27 2018-10-27 [facility] [id number] Common 10:30:00 10:30:00 [facility] 2018-09-29 2018-09-29 [facility] [id number] Common 10:00:00 [facility]00[facility] 2018-08-26 2018-08-26 [facility] [id number] Common 10:15:00 10:15:00 [facility] 2018-08-04 2018-08-04 [facility] [id number] Common 19:00:00 19:00:00 [facility] 2018-07-28 2018-07-28 [facility] [id number] Common 10:30:00 10:30:00 t [facility] 2018-06-29 2018-06-29 [facility] [id number] Common 10:30:00 10:30:00 t [facility] Results Test Description Test Time Test Comments Results Result Comments Source SARS-COV2/RT-PCR ([facility]) 2019-12-14 18:20:00 Test Item Value Reference Range Interpretation Comme nts SARS-COV2/RT-PCR (test code = 5032112) Not Detected Not Detected, N egative SARS-COV-2 PERFORMING LAB (test code = [id number]) Negative results do not preclude SARS-CoV-2 infection [...] of the Act.Fact Sheet for Healthcare Pro viders:https://www.[employer]/Documents/Xpert%20Xpress%20SARS%20CoV-2/Fact%20Sh eets/3023802%38UVMO-ILH-1%20HEALTHCARE%20PROVIDERS%20FACT%20SHEET.pdfFact Sheet for Healthcare Patients:https://www.[employer]/Documents/Xpert%20Xpress%20SARS%20CoV-2/Fact%20Sheets/3023801%20SARS-COV -2%20PATIENT%20FACT%20SHEET.pdfPerforming Laboratory:[facility] [place] [address]
[2023-04-30] MEDS ORDERED: MORPHINE 4 MG/ML SYR ONE (08:03)
[2023-04-30] MEDS ORDERED: NA CHLORIDE 0.9% 1,000 ML ONE (08:04)
[2023-04-30] MEDS ORDERED: ONDANSETRON 4 MG/2 ML VIAL ONE (08:04)
[2023-04-30] MEDS ORDERED: KETOROLAC 30 MG/ML INJ ONE (08:04)
[2023-04-30 08:30] LABS: Absolute Lymphocytes (CBC) 3.3 K/uL (0.7-4.9); Hematocrit 44.2 % (36.0-45.0); Lymphocytes % 48.4 % (15.3-44.8); MPV 8.6 fL (7.6-11.3); Platelets 204 thou/uL (152-406); RBC Red Blood Cell Count 4.91 M/uL (3.86-4.86)
[2023-04-30 08:31] LABS: Specific Gravity 1.022 (1.005-1.030)
[2023-04-30 08:34] LABS: Specific Gravity 1.022 (1.005-1.030); Urine Bacteria <20 /HPF (<20); Urine Bilirubin NEGATIVE (Negative); Urine Blood 3+ (OVER) (Negative); Urine Clarity Extremely Turbid (Clear); Urine Color Yellow (Yellow); Urine Glucose NEGATIVE (Negative); Urine Mucus 1+ /HPF (None Seen); Urine Protein 2+ (Negative); Urine RBC >50 /HPF (None Seen); Urine Urobilinogen Normal (Normal); Urine pH 5.5 (5.0-7.0)
--- NOTE | 2023-04-30 08:46 | RAD REPORT ---
EXAM DESCRIPTION: CT - Abdomen Pelvis Wo Contrast - 04/30/2023 8:02 am CLINICAL HISTORY: Abdominal pain. KIDNEY STONES COMPARISON: <Comparisons> TECHNIQUE: CT imaging of the abdomen and pelvis was performed without contrast. Solid organ, bowel a nd vascular assessment is limited due to lack of IV and oral contrast. All CT scans are performed using dose optimization technique as appropriate and may include automated exposure control or mA/KV adjustment according to patient size. FINDINGS: The lower lung greer are clear. The liver, spleen, pancreas, adrenal glands and left kidney are within normal limits for a limited no n-contrast examination.11 mm right renal pelvic stone. No hydronephrosis. No bowel obstruction, free air, free fluid or abscess. The appendix is normal. The osseous structures are within normal limits.Mild dextroscoliosis of the lower lumbar spine IMPRESSION: Nonobstructing 11 mm right renal pelvic stone. A limited non-contrast examination was performed as detailed.
[2023-04-30 08:50] LABS: Albumin 3.8 g/dL (3.4-5.0); Bilirubin Direct 0.2 mg/dL (0-0.2); Bilirubin Indirect, Calculated 0.6 mg/dL (0.2-0.8); Bilirubin Total 0.8 mg/dL (0.2-1.0); Potassium 3.8 mEq/L (3.5-5.1); Protein, Total 7.2 g/dL (6.4-8.2)
--- NOTE | 2023-04-30 09:40 | EDPHYS ---
Physician Documentation [facility] Name: Zainab Stauffer Age: 42 yrs Sex: Female : 1980 Arrival Date: 04/30/2023 Time: 07:20 Bed 19 Private MD: ED Physician Oscar Olsen HPI: 04/30 09:50 This 42 yrs old Female presents to ER via Ambulatory with complaints of Abdominal Pain. cp3 08:07 Patient is a 42-year-old female with a past medical history significant for cp3 hypercholesterolemia, renal stones who presents to the ED with 3 days of 10 out of 10 right flank pain with radiation to the right lower quadrant. The patient endorses she was seen in urgent care yesterday and told she had blood and protein in the urine. Patient endorses she was found to have a 11 mm renal stone several months ago. Pain has not improved over the last 3 days and is described as aching discomfort. No dysuria noted. Historical: - Allergies: 07:27 No Known Allergies; ph - PMHx: 07:27 Hypercholesterolemia; ph - PSHx: 07:27 None; ph - Immunization history:: Adult Immunizations unknown. - Social history:: Smoking status: Patient denies any tobacco usage or history of. - Family history:: not pertinent. ROS: 08:07 Constitutional: Negative for fever, chills, and weight loss, Eyes: Negative for injury, cp3 pain, redness, and discharge, ENT: Negative for injury, pain, and discharge, Neck: Negative for injury, pain, and swelling, Cardiovascular: Negative for chest pain, palpitations, and edema, Respiratory: Negative for shortness of breath, cough, wheezing, and pleuritic chest pain, MS/Extremity: Negative for injury and deformity, Skin: Negative for injury, rash, and discoloration, Neuro: Negative for headache, weakness, numbness, tingling, and seizure, Psych: Negative for depression, anxiety, suicide ideation, homicidal ideation, and hallucinations, Allergy/Immunology: Negative for hives, rash, and allergies, Endocrine: Negative for neck swelling, polydipsia, polyuria, polyphagia, and marked weight changes, Hematologic/Lymphatic: Negative for swollen nodes, abnormal bleeding, and unusual bruising, 08:07 Abdomen/GI: Positive for abdominal pain, nausea, 08:07 Back: Positive for flank pain, on the right, Exam: 08:07 Constitutional: This is a well developed, well nourished patient who is awake, alert, cp3 and in no acute distress. Head/Face: Normocephalic, atraumatic. Eyes: Pupils equal round and reactive to light, extra-ocular motions intact. Lids and lashes normal. Conjunctiva and sclera are non-icteric and not injected. Cornea within normal limits. Periorbital areas with no swelling, redness, or edema. Neck: Trachea midline, no thyromegaly or masses palpated, and no cervical lymphadenopathy. Supple, full range of motion without nuchal rigidity, or vertebral point tenderness. No Meningismus. Chest/axilla: Normal chest wall appearance and motion. Nontender with no deformity. No lesions are appreciated. Cardiovascular: Regular rate and rhythm with a normal S1 and S2. No gallops, murmurs, or rubs. Normal PMI, no JVD. No pulse deficits. Respiratory: Lungs have equal breath sounds bilaterally, clear to auscultation and percussion. No rales, rhonchi or wheezes noted. No increased work of breathing, no retractions or nasal flaring. Skin: Warm, dry with normal turgor. Normal color with no rashes, no lesions, and no evidence of cellulitis. MS/ Extremity: Pulses equal, no cyanosis. Neurovascular intact. Full, normal range of motion. Neuro: Awake and alert, GCS 15, oriented to person, place, time, and situation. Cranial nerves II-XII grossly intact. Motor strength 5/5 in all extremities. Sensory grossly intact. Cerebellar exam normal. Normal gait. Psych: Awake, alert, with orientation to person, place and time. Behavior, mood, and affect are within normal limits. 08:07 Abdomen/GI: Palpation: moderate abdominal tenderness, in the posterior aspect of right lateral abdomen, anterior aspect of right lateral abdomen and right lower quadrant, 08:07 Back: pain, CVA tenderness, that is moderate, is noted on the right, cp3 Vital Signs: 07:24 BP 117 / 99; Pulse 82; Resp 18; Temp 97.8; Pulse Ox 100% on R/A; Weight 51.26 kg; ph Height 5 ft. 0 in. ; 09:00 BP 112 / 78; Pulse 81; Resp 18; Pulse Ox 98% on R/A; ph 07:24 Body Mass Index 22.07 (51.26 kg, 152.4 cm) ph MDM: 07:24 Patient medically screened. cp3 09:49 Differential diagnosis: nephrolithiasis, pyelonephritis, UTI, diverticulitis. Data cp3 reviewed: vital signs, nurses notes, radiologic studies, CT scan. Consideration of Admission/Observation Escalation of care including admission/observation considered. Response to treatment: the patient's symptoms have markedly improved after treatment. 04/30 07:48 Order name: CBC with Diff; Complete Time: 09: cp3 04/30 09:22 Interpretation: WBC 6.90; RBC 4.91; HGB 14.9; HCT 44.2; MCV 90.0; MCH 30.3; MCHC 33.7; cp3 PLT 204; RDW 13.1; MPV 8.6; MANSI% 42.1; LYM% 48.4; MN% 7.4; EOSINOPHIL % 1.0; BASO% 1.1; NEUT A 2.9; LYMA 3.3; MNA 0.5; EOSA 0.1; BASOA 0.1. 04/30 07:48 Order name: Basic Metabolic Panel; Complete Time: 09:13 cp3 04/30 09:22 Interpretation: NA 138; K 3.8; CL 111; CO2 22; ANION GAP 8.8; GLUC 95; BUN 13; CRE cp3 0.87; GFR 85; CA 8.6. 04/30 07:48 Order name: Hepatic Function; Complete Time: 09:13 cp3 04/30 09:22 Interpretation: AST 13; ALT 16; ALK 53; BILIT 0.8; BILID 0.2; IBILI, CALC 0.6; TP 7.2; cp3 ALB 3.8; GLOB 3.4; A/G 1.1. 04/30 07:48 Order name: Urinalysis W/Microscopic; Complete Time: 09:13 cp3 04/30 07:48 Order name: Test, Urine; Complete Time: 09:13 cp3 04/30 08:38 Order name: Urine Culture EDMS 04/30 07:48 Order name: CT Abd/Pelvis - Without Contrast; Complete Time: 09: cp3 04/30 09:23 Interpretation: Per Radiologist's finding(s): [facility] [address] [address] RADIOLOGY SERVICES REPORT Name: ZAINAB STAUFFER Acct Number: [id number] :1980 Age:42 Sex:F Ord Phys: Oscar Olsen MD Unit Number: [id number] [place] [facility] Dr: Charlie Carlson MD Status: REG ER ER Exam Date: 04/30/23 EXAM DESCRIPTION: CT - Abdomen Pelvis Wo Contrast - 04/30/2023 8:02 am CLINICAL HISTORY: Abdominal pain. KIDNEY STONES COMPARISON: <Comparisons> TECHNIQUE: CT imaging of the abdomen and pelvis was performed without contrast. Solid organ, bowel and vascular assessment is limited due to lack of IV and oral contrast. All CT scans are performed using dose optimization technique as appropriate and may include automated exposure control or mA/KV adjustment according to patient size. FINDINGS: The lower lung greer are clear. The liver, spleen, pancreas, adrenal glands and left kidney are within normal limits for a limited non-contrast examination.11 mm right renal pelvic stone. No hydronephrosis. No bowel obstruction, free air, free fluid or abscess. The appendix is normal. The osseous structures are within normal limits.Mild dextroscoliosis of the lower lumbar spine IMPRESSION: Nonobstructing 11 mm right renal pelvic stone. A limited non-contrast examination was performed as detailed. Signed By: Umberto Aranda MD Signed AT: 04/30/23 0846 . 04/30 07:48 Order name: Saline Lock; Complete Time: 08:24 cp3 Administered Medications: 08:24 Drug: Ketorolac IVP 30 mg IVP once Route: IVP; Site: right antecubital; ph 09:00 Follow up: Response: No adverse reaction ph 08:24 Drug: Ondansetron IVP 4 mg IVP once; over 2 minutes Route: IVP; Site: right antecubital;ph 09:00 Follow up: Response: No adverse reaction ph 08:24 Drug: morphine IVP or IV 4 mg IVP once over 4 mins Route: IVP; Infused Over: 4 mins; ph Site: right antecubital; 09:00 Follow up: Response: No adverse reaction ph 08:24 Drug: NS 0.9% IV 1000 ml IV at 1 bolus Per protocol; 1000 mL bolus Route: IV; Rate: 1 ph bolus; Site: right antecubital; 09:30 Follow up: Response: No adverse reaction; IV Status: Completed infusion ph Disposition Summary: 04/30/23 09:40 Discharge Ordered Notes: Location: Home cp3 Condition: Stable cp3 Diagnosis - Abdominal tenderness cp3 Followup: cp3 - With: Arpit Rehman DO - When: - Reason: Recheck today's complaints Followup: cp3 - With: Raghu Chavarria MD - When: Upon discharge from the Emergency Department - Reason: Recheck today's complaints Discharge Instructions: - Discharge Summary Sheet cp3 - Kidney Stones cp3 Forms: - Medication Reconciliation Form cp3 - Thank You Letter cp3 - Antibiotic Education cp3 - Prescription Opioid Use cp3 - Patient Portal Instructions cp3 - Leadership Thank You Letter cp3 - Work release form ph Prescriptions: - ketorolac - take 10 milligram ORAL route 3 times per day As needed; 15 tablet; Refills: 0, cp3 Product Selection Permitted - Ibuprofen 600 mg Oral Tablet - take 1 tablet ORAL route every 6 hours As needed take with food; 30 tablet; cp3 Refills: 0, Product Selection Permitted - Hydrocodone-Acetaminophen 5-325 mg Oral Tablet - take 1 tablet ORAL route every 6 hours As needed; 12 tablet; Refills: 0, cp3 Product Selection Permitted - Cyclobenzaprine 5 mg Oral Tablet - take 1 tablet ORAL route 3 times per day As needed; 15 tablet; Refills: 0, cp3 Product Selection Permitted Signatures: Dispatcher [employer] Oscar Jackson MD MD cp3 Tiny Dugan RN RN ph
--- NOTE | 2023-04-30 09:40 | ER ---
Nurse's Notes [facility] Name: Zainab Hassan Age: 42 yrs Sex: Female : 1980 Arrival Date: 04/30/2023 Time: 07:20 Bed 19 Private MD: Diagnosis: Abdominal tenderness Presentation: 04/30 07:24 Chief complaint: Patient states: RLQ pain that radiates to back x 1 week, nausea but no ph vomiting or diarrhea, was seen at urgent care and prescribed anti-inflammatories w/ no relief, states that she had blood and protein in her urine at that time. Hx of kidney stones and ovarian cysts. Coronavirus screen: Vaccine status: Patient reports receiving the 1st dose of the Covid vaccine. Ebola Screen: No symptoms or risks identified at this time. Initial Sepsis Screen: Does the patient meet any 2 criteria? No. Patient's initial sepsis screen is negative. Does the patient have a suspected source of infection? No. Patient's initial sepsis screen is negative. Risk Assessment: Do you want to hurt yourself or someone else? Patient reports no desire to harm self or others. Onset of symptoms was April 30, 2023. 07:24 Method Of Arrival: Ambulatory 07:24 Acuity: LYSSA 3 ph Triage Assessment: 07:29 General: Appears in no apparent distress. well groomed, Behavior is calm, cooperative, ph appropriate for age, Denies fever. Pain: Complains of pain in right lower quadrant Pain radiates to back. Neuro: [place] Agitation-Sedation Scale (RASS): 0 - Alert and Calm Level of Consciousness is awake, alert, obeys commands, Oriented to person, place, time, situation. Cardiovascular: Capillary refill < 3 seconds in bilateral fingers Patient's skin is warm and dry. Respiratory: Airway is patent Respiratory effort is even, unlabored, Respiratory pattern is regular, symmetrical. GI: Abdomen is non-distended, Reports lower abdominal pain, nausea, Patient currently denies constipation, diarrhea, vomiting. : Reports pain in right lower quadrant(s) in lower back Denies burning with urination, urinary frequency. Derm: Skin is pink, warm \T\ dry. Musculoskeletal: Circulation, motion, and sensation intact. Range of motion: intact in all extremities. Historical: - Allergies: 07:27 No Known Allergies; ph - PMHx: 07:27 Hypercholesterolemia; ph - PSHx: 07:27 None; ph - Immunization history:: Adult Immunizations unknown. - Social history:: Smoking status: Patient denies any tobacco usage or history of. - Family history:: not pertinent. Screenin:29 [facility] ED Fall Risk Assessment (Adult) History of falling in the last 3 months, ph including since admission No falls in past 3 months (0 pts) Confusion or Disorientation No (0 pts) Intoxicated or Sedated No (0 pts) Impaired Gait No (0 pts) Mobility Assist Device Used No (0 pt) Altered Elimination No (0 pt) Score/Fall Risk Level 0 - 2 = Low Risk Oriented to surroundings, Maintained a safe environment, Hourly rounding (assess needs \T\ fall precautionary measures) done. Abuse screen: Denies threats or abuse. Denies injuries from another. Nutritional screening: No deficits noted. Tuberculosis screening: No symptoms or risk factors identified. Assessment: 08:00 General: SEE TRIAGE ASSESMENT. ph Vital Signs: 07:24 BP 117 / 99; Pulse 82; Resp 18; Temp 97.8; Pulse Ox 100% on R/A; Weight 51.26 kg; ph Height 5 ft. 0 in. ; 09:00 BP 112 / 78; Pulse 81; Resp 18; Pulse Ox 98% on R/A; ph 07:24 Body Mass Index 22.07 (51.26 kg, 152.4 cm) ph ED Course: 07:20 Patient arrived in ED. mg5 07:21 Arm band placed on Patient placed in an exam room, on a stretcher. mb9 07:24 Tiny Dugan, RN is Primary Nurse. ph 07:24 Oscar Olsen MD is Attending Physician. cp3 07:27 Triage completed. ph 07:29 Patient has correct armband on for positive identification. Bed in low position. Call ph light in reach. Side rails up X 1. Pulse ox on. NIBP on. Door closed. Noise minimized. Warm blanket given. 08:02 CT Abd/Pelvis - Without Contrast In Process Unspecified. EDMS 08:24 Test, Urine Sent. ph 08:24 Urinalysis W/Microscopic Sent. ph 08:24 Hepatic Function Sent. ph 08:24 Basic Metabolic Panel Sent. ph 08:24 CBC with Diff Sent. ph 09:39 Arpit Rehman DO is Referral Physician. cp3 09:45 Raghu Chavarria MD is Referral Physician. cp3 10:00 No provider procedures requiring assistance completed. IV discontinued, intact, ph bleeding controlled, No redness/swelling at site. Pressure dressing applied. Administered Medications: 08:24 Drug: Ketorolac IVP 30 mg IVP once Route: IVP; Site: right antecubital; ph 09:00 Follow up: Response: No adverse reaction ph 08:24 Drug: Ondansetron IVP 4 mg IVP once; over 2 minutes Route: IVP; Site: right antecubital;ph 09:00 Follow up: Response: No adverse reaction ph 08:24 Drug: morphine IVP or IV 4 mg IVP once over 4 mins Route: IVP; Infused Over: 4 mins; ph Site: right antecubital; 09:00 Follow up: Response: No adverse reaction ph 08:24 Drug: NS 0.9% IV 1000 ml IV at 1 bolus Per protocol; 1000 mL bolus Route: IV; Rate: 1 ph bolus; Site: right antecubital; 09:30 Follow up: Response: No adverse reaction; IV Status: Completed infusion ph Medication: 07:29 VIS not applicable for this client. ph Outcome: 09:40 Discharge ordered by MD. cp3 10:00 Patient left the ED. ll1 10:00 Discharged to home ambulatory, ph 10:00 Condition: good 10:00 Discharge instructions given to patient, Instructed on discharge instructions, follow up and referral plans. medication usage, Demonstrated understanding of instructions, follow-up care, medications, Prescriptions given X 3, Signatures: Dispatcher [employer] Oscar Jackson MD MD cp3 Tiny Dugan RN RN ph Hilda Sawyer RN RN ll1 Carol Lopez RN RN mb9 Margoth Carter mg5
[2023-04-30 10:27] VITALS: BP 117/99; TEMP 97.8; O2SAT 100
== END 2023-04-30 10:00 | disposition home or self-care (01) ==
LOC: ER 07:20
DX: R10.813 Right lower quadrant abdominal tenderness (principal); N20.0 Calculus of kidney
CPT/HCPCS: 96361; 87088; 85025; 81001; 87086; 80048; 36415; 81025; 80076; 74176; 96375; 96374; 99284; J2405; J7030

== ENCOUNTER 2023-07-21 11:46 | Day surgery (SDC) | payer OTHER ==
[2023-07-21 13:33] LABS: Protime INR 1.1
--- NOTE | 2023-07-21 13:38 | EKG ---
Test Date: 2023-07-21 Test Time: 13:27:31 Client Director: SYED MEASUREMENT RESULTS: Intervals: Rate: 64 CT: 142 QRSD: 74 QT: 414 QTc: 427 [place]: P: 44 CT: 142 QRS: 63 T: 39 INTERPRETIVE STATEMENTS: Normal sinus rhythm Normal ECG No previous ECG available for comparison Electronically Signed On 07-21-23 13:38:29 [employer]Y COMPLIANCE SPECIALIST by Liban Restrepo
[2023-07-21] MEDS ORDERED: MIDAZOLAM HCL 2 MG/2 ML INJ ONE (15:08)
[2023-07-21] MEDS ORDERED: CEFAZOLIN SODIUM 1 GM/VIAL ONE (15:10)
[2023-07-21] MEDS ORDERED: Ringers Lactate 1,000 ML IV ONE (15:11)
[2023-07-21] MEDS ORDERED: ONDANSETRON 4 MG/2 ML VIAL ONE (15:17)
[2023-07-21] MEDS ORDERED: FENTANYL CITR 100 MCG/2 ML ONE (15:17)
[2023-07-21] MEDS ORDERED: KETOROLAC 30 MG/ML INJ ONE (15:17)
[2023-07-21] MEDS ORDERED: LIDOCAINE 1% MPF 5 ML VIAL ONE (15:17)
[2023-07-21] MEDS ORDERED: dexAMETHasone 4 MG/ML VIAL ONE (15:17)
[2023-07-21] MEDS ORDERED: propofoL 200 MG/20 ML VIAL IV ONE (15:17)
[2023-07-21] MEDS ORDERED: CODEINE 30MG/APAP 300MG TAB PO PRN (16:05)
[2023-07-21 16:25] VITALS: O2SAT 100
[2023-07-21 16:42] VITALS: BP 117/69; TEMP 97.9
== END 2023-07-21 17:30 | disposition home or self-care (01) ==
LOC: OR 11:46
PROVIDERS: ATTEND Urology
DX: N20.0 Calculus of kidney (principal); N39.0 Urinary tract infection, site not specified; E78.00 Pure hypercholesterolemia, unspecified; G43.909 Migraine, unspecified, not intractable, without status migrainosus; Z83.3 Family history of diabetes mellitus; Z82.49 Family history of ischemic heart disease and other diseases of the circulatory system
CPT/HCPCS: 36415; 50590; 85610; 85730; 93005; J0690; J1100; J2001; J2250; J2405; J2704; J3010; J7120

== ENCOUNTER → 2023-08-09 | Emergency (ER) | payer OTHER ==
[~2023-08-09] MED LIST: ACETAMIN/CAFFEINE/BUTALB TAB PO ONE; DIPHENHYDRAMINE 50 MG/ML VIAL ONE; KETOROLAC 30 MG/ML INJ ONE; METOCLOPRAMIDE 10 MG/2mL INJ ONE; NA CHLORIDE 0.9% 1,000 ML ONE; dexAMETHasone 10 MG/ML VIAL ONE
--- NOTE | 2023-08-09 18:46 | ER ---
Nurse's Notes [facility] Name: Zainab Hassan Age: 43 yrs Sex: Female : 1980 Arrival Date: 08/09/2023 Time: 16:33 Bed 11 Private MD: Diagnosis: Migraine without aura, not intractable Presentation: 08/09 16:57 Chief complaint: Patient states: Pt c/o headache x 3 days. Pt states this is worse than tl4 her normal migraines. No relief with migraine medications. Pt also c/o N/V. Coronavirus screen: Vaccine status: Patient reports receiving the 2nd dose of the covid vaccine. At this time, the client does not indicate any symptoms associated with coronavirus-19. Ebola Screen: Patient negative for fever greater than or equal to 101.5 degrees Fahrenheit, and additional compatible Ebola Virus Disease symptoms Patient denies exposure to infectious person. Patient denies travel to an Ebola-affected area in the 21 days before illness onset. No symptoms or risks identified at this time. Initial Sepsis Screen: Does the patient meet any 2 criteria? No. Patient's initial sepsis screen is negative. Does the patient have a suspected source of infection? No. Patient's initial sepsis screen is negative. Risk Assessment: Do you want to hurt yourself or someone else? Patient reports no desire to harm self or others. Onset of symptoms was August 06, 2023. 16:57 Method Of Arrival: Ambulatory tl4 16:57 Acuity: LYSSA 3 tl4 Triage Assessment: 17:00 Headache History: The patient has had previous headaches and this one is more severe tl4 than previous episodes. General: Appears uncomfortable, Behavior is calm, cooperative. Pain: Pain at worst was 10 out of 10 on a pain scale. Pain began gradually, 2-3 days ago. Also complains of nausea. Neuro: Reports headache photophobia. Historical: - Allergies: 16:59 No Known Allergies; tl4 - Home Meds: 16:59 Sumatriptan Sub-Q [Active]; Topamax Oral [Active]; tl4 - PMHx: 16:59 Hypercholesterolemia; Migraine; tl4 - Immunization history:: Adult Immunizations unknown. - Social history:: Smoking status: Patient denies any tobacco usage or history of. Screenin:16 [facility] ED Fall Risk Assessment (Adult) History of falling in the last 3 months, bp including since admission No falls in past 3 months (0 pts). Abuse screen: Denies threats or abuse. Denies injuries from another. Nutritional screening: No deficits noted. Tuberculosis screening: No symptoms or risk factors identified. Vital Signs: 16:57 BP 124 / 94; Pulse 74; Resp 16; Temp 98.1(TE); Pulse Ox 99% on R/A; Weight 57.15 kg; tl4 Height 5 ft. 1 in. ; Pain 8/10; 16:57 Body Mass Index 23.81 (57.15 kg, 154.94 cm) tl4 16:57 Pain Scale: Adult tl4 [place] Coma Score: 18:44 Eye Response: spontaneous(4). Motor Response: obeys commands(6). Verbal Response: kb oriented(5). Total: 15. ED Course: 16:36 Patient arrived in ED. ts1 16:59 Triage completed. tl4 17:01 Arm band placed on right wrist. tl4 17:02 Bree Lang FNP-C is [facility]. kb 17:02 Kam Meehan MD is Attending Physician. kb 17:12 Rui Mcmanus, CRISTHIAN is Primary Nurse. bp 17:22 Inserted saline lock: 22 gauge in right forearm, using aseptic technique. Blood ds4 collected. Missed attempt(s): 22 gauge in right forearm. Bleeding controlled, band aid applied, catheter tip intact. 19:16 Patient has correct armband on for positive identification. bp 19:16 No provider procedures requiring assistance completed. IV discontinued, intact, bp bleeding controlled, No redness/swelling at site. Pressure dressing applied. Administered Medications: 17:35 Drug: NS 0.9% IV 1000 ml IV at 1000 ml once Route: IV; Rate: 1000 ml; Site: right bp antecubital; 19:00 Follow up: IV Status: Completed infusion; IV Intake: 1000ml bp 17:35 Drug: Ketorolac IVP 15 mg IVP once Route: IVP; Site: right antecubital; bp 19:00 Follow up: Response: No adverse reaction bp 17:35 Drug: metoCLOPramide IVP 10 mg IVP once; over 1 to 2 minutes Route: IVP; Site: right bp antecubital; 19:00 Follow up: Response: No adverse reaction bp 17:35 Drug: diphenhydrAMINE IVP 25 mg IVP once Route: IVP; Site: right antecubital; bp 19:00 Follow up: Response: No adverse reaction bp 17:35 Drug: Decadron - Dexamethasone IVP 10 mg IVP once Route: IVP; Site: right antecubital; bp 19:00 Follow up: Response: No adverse reaction bp 19:00 Drug: Fioricet - Esgic PO 325 mg-40 mg-50 mg 1 tab-caps PO once Route: PO; bp 19:00 Follow up: Response: No adverse reaction bp Intake: 19:00 IV: 1000ml; Total: 1000ml. bp Outcome: 18:45 Discharge ordered by . kb 19:16 Discharged to home ambulatory, bp 19:16 Condition: stable 19:16 Discharge instructions given to patient, Instructed on discharge instructions, follow up and referral plans. Demonstrated understanding of instructions, follow-up care, 19:17 Patient left the ED. bp Signatures: Bree Lang, [employer]-CkJoey Del [place]le ds4 Rui Mcmanus, RN RN bp Jeri Beltran, PAS PAS ts1 Dante Jarrett tl4
--- NOTE | 2023-08-09 18:46 | EDPHYS ---
Physician Documentation [facility] Name: Zainab Hassan Age: 43 yrs Sex: Female : 1980 Arrival Date: 08/09/2023 Time: 16:33 Bed 11 Private MD: ED Physician Kam Meehan HPI: 08/09 18:44 This 43 yrs old Female presents to ER via Ambulatory with complaints of Headache, Worst kb Ever. 18:44 Patient is a 43-year-old female with a history of migraines who presents for headache kb that started 3 days ago. Reports pain is to right anabaptist, worse with movement. Associated with nausea and vomiting. Denies photophobia. Denies fever.. Historical: - Allergies: 16:59 No Known Allergies; tl4 - Home Meds: 16:59 Sumatriptan Sub-Q [Active]; Topamax Oral [Active]; tl4 - PMHx: 16:59 Hypercholesterolemia; Migraine; tl4 - Immunization history:: Adult Immunizations unknown. - Social history:: Smoking status: Patient denies any tobacco usage or history of. ROS: 18:43 Constitutional: Negative for fever, chills, and weight loss, kb 18:43 Abdomen/GI: Positive for nausea and vomiting, Negative for abdominal pain, 18:43 Neuro: Positive for headache, 18:43 All other systems are negative, Exam: 18:43 Constitutional: This is a well developed, well nourished patient who is awake, alert, kb and in no acute distress. Head/Face: Normocephalic, atraumatic. Eyes: Pupils equal round and reactive to light, extra-ocular motions intact. Lids and lashes normal. Conjunctiva and sclera are non-icteric and not injected. Cornea within normal limits. Periorbital areas with no swelling, redness, or edema. ENT: Moist Mucous membranes Cardiovascular: Regular rate Respiratory: Respirations even and unlabored. No increased work of breathing. Talking in full sentences Abdomen/GI: Soft, non-tender. No distention Skin: Warm, dry with normal turgor. Normal color. MS/ Extremity: Pulses equal, no cyanosis. Neurovascular intact. Full, normal range of motion. Neuro: Awake and alert, GCS 15, oriented to person, place, time, and situation. Moves all extremities. Normal gait. Vital Signs: 16:57 BP 124 / 94; Pulse 74; Resp 16; Temp 98.1(TE); Pulse Ox 99% on R/A; Weight 57.15 kg; tl4 Height 5 ft. 1 in. ; Pain 8/10; 16:57 Body Mass Index 23.81 (57.15 kg, 154.94 cm) tl4 16:57 Pain Scale: Adult tl4 Santana Coma Score: 18:44 Eye Response: spontaneous(4). Motor Response: obeys commands(6). Verbal Response: kb oriented(5). Total: 15. MDM: 17:02 Patient medically screened. kb 18:44 Differential diagnosis: cluster headache, migraine, sinusitis, tension headache. Data kb reviewed: vital signs, nurses notes. Test considered but Not performed: CT: CT brain considered but patient has no neurological deficits, history of migraines and headache is improved with medications.. Counseling: I had a detailed discussion with the patient and/or guardian regarding the historical points, exam findings, and any diagnostic results supporting the discharge/admit diagnosis, the need for outpatient follow up, a neurologist, to return to the emergency department if symptoms worsen or persist or if there are any questions or concerns that arise at home. 18:46 Response to treatment: the patient's symptoms have markedly improved after treatment. kb 08/09 17:02 Order name: IV Start; Complete Time: 17:22 kb Administered Medications: 17:35 Drug: NS 0.9% IV 1000 ml IV at 1000 ml once Route: IV; Rate: 1000 ml; Site: right bp antecubital; 19:00 Follow up: IV Status: Completed infusion; IV Intake: 1000ml bp 17:35 Drug: Ketorolac IVP 15 mg IVP once Route: IVP; Site: right antecubital; bp 19:00 Follow up: Response: No adverse reaction bp 17:35 Drug: metoCLOPramide IVP 10 mg IVP once; over 1 to 2 minutes Route: IVP; Site: right bp antecubital; 19:00 Follow up: Response: No adverse reaction bp 17:35 Drug: diphenhydrAMINE IVP 25 mg IVP once Route: IVP; Site: right antecubital; bp 19:00 Follow up: Response: No adverse reaction bp 17:35 Drug: Decadron - Dexamethasone IVP 10 mg IVP once Route: IVP; Site: right antecubital; bp 19:00 Follow up: Response: No adverse reaction bp 19:00 Drug: Fioricet - Esgic PO 325 mg-40 mg-50 mg 1 tab-caps PO once Route: PO; bp 19:00 Follow up: Response: No adverse reaction bp Disposition: 08/10 08:57 Co-signature as Attending Physician, Kam Meehan MD I reviewed the patient's care rn provided by the Advanced Practice Provider and agree with the diagnosis and treatment plan. Disposition Summary: 08/09/23 18:45 Discharge Ordered Notes: Location: Home kb Condition: Stable kb Diagnosis - Migraine without aura, not intractable kb Followup: kb - With: Emergency Department - When: As needed - Reason: Worsening of condition Followup: kb - With: Private Physician - When: 2 - 3 days - Reason: Recheck today's complaints, Continuance of care, Re-evaluation by your physician Discharge Instructions: - Discharge Summary Sheet kb - Migraine Headache, [id number] kb Forms: - Medication Reconciliation Form kb - Thank You Letter kb - Antibiotic Education kb - Prescription Opioid Use kb - Patient Portal Instructions kb - Leadership Thank You Letter kb Signatures: Bree Lang, [employer] ADMINISTRATION ASSISTANT-Ckb Kam Meehan MD MD rn Peltier, Brian, RN RN Dante Wu tl4
[2023-08-09 19:40] VITALS: BP 124/94; TEMP 98.1; O2SAT 99
== END ==
LOC: ER 16:33
DX: G43.009 Migraine without aura, not intractable, without status migrainosus (principal)
CPT/HCPCS: 96361; 96375; 96374; 99284; J2765; J1200; J1100; J7030